=== PATIENT | male | born 1980 | race Caucasian/White ===

== ENCOUNTER 2018-08-18 17:48 | Emergency (ER) | payer MEDICAID ==
[~2018-08-18] VITALS: Ht 162.6 cm; Wt 80.3 kg
[2018-08-18 17:57] VITALS: BP_SYST 148
[2018-08-18] MEDS ORDERED: IBUPROFEN 800 MG TABLET PO ONE (19:15)
[2018-08-18 20:08] VITALS: BP_SYST 110
== END 2018-08-18 20:08 | disposition home or self-care (01) ==
LOC: SED 17:48
DX: S93.401A Sprain of unspecified ligament of right ankle, initial encounter (principal); R03.0 Elevated blood-pressure reading, without diagnosis of hypertension; W50.2XXA Accidental twist by another person, initial encounter; Y93.66 Activity, soccer; Y92.89 Other specified places as the place of occurrence of the external cause; Y99.8 Other external cause status
CPT/HCPCS: 73590-TC; 99283